=== PATIENT | male | born 1995 | race African-American/Black ===

== ENCOUNTER 2017-01-05 19:16 | Emergency (ER) | payer OTHER ==
[2017-01-05] MEDS ORDERED: Ibuprofen TAB* 400 MG PO ONE (19:41)
[2017-01-05 19:42] VITALS: BP 116/71
--- NOTE | 2017-01-05 19:45 | UC ---
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 Chest Pain Location: Left Lateral Character: Heaviness, Sharp/Stabbing Aggravating: Deep Breaths - coughing Alleviating: Rest Associated Signs & Symptoms: Positive: SOB, Fever, Cough - Allergy/Home Medications Allergies/Adverse Reactions: Allergies Allergy/AdvReac Type Severity Reaction Status Date / Time Seasonal Allegies Allergy Congestion Uncoded 01/05/17 19:35 Home Medications: Home Medications NK [No Home Medications Reported] 01/05/17 [History Confirmed 01/05/17] PMH/Surg Hx/FS Hx/Imm Hx Previously Healthy: Yes Endocrine History Of: Denies: Diabetes, Thyroid Disease Cardiovascular History Of: Denies: Cardiac Disorders, Hypertension Respiratory History Of: Reports: Bronchitis Denies: COPD, Asthma GI/ History Of: Denies: Ulcer Other History Of: Negative For: Anticoagulant Therapy - Surgical History Surgical History: None - Family History Known Family History: Positive: Cardiac Disease - mother- [place], Hypertension - mother, Diabetes - mother, Other - mother CVA - Social History Occupation: Employed Full-time Lives: With Family Alcohol Use: Weekly Substance Use Type: Marijuana Substance Use Comment - Amount & Last Used: benzodiazepines Smoking Status (MU): Light Every Day Tobacco Smoker Type: Cigarettes Amount Used/How Often: 1-2 cigs per day Cessation Counseling: Patient Advised to Stop - Immunization History Most Recent Influenza Vaccination: none Most Recent Tetanus Shot: up to date Review of Systems Constitutional: Fever, Chills, Fatigue Skin: Negative Eyes: Negative ENT: Sore Throat, Ear Ache, Nasal Discharge Respiratory: Cough Cardiovascular: Chest Pain Gastrointestinal: Negative Genitourinary: Negative Motor: Negative Neurovascular: Negative Musculoskeletal: Negative Neurological: Negative Psychological: Negative All Other Systems Reviewed And Are Negative: Yes Physical Exam Triage Information Reviewed: Yes Appearance: No Pain Distress, Well-Nourished, Ill-Appearing Vital Signs: Initial Vital Signs Temp 101.7 F 01/05/17 19:20 Vital Signs Reviewed: Yes Eyes: Positive: Conjunctiva Clear ENT: Positive: Pharyngeal erythema, Nasal congestion, Nasal drainage, TMs normal Neck: Positive: No Lymphadenopathy Respiratory: Positive: Lungs clear, Decreased breath sounds - LLL. Negative: Rhonchi, Wheezing Cardiovascular: Positive: RRR, No Murmur, Pulses Normal Abdomen Description: Positive: Nontender, Soft Bowel Sounds: Positive: Present Musculoskeletal Exam: Normal Neurological: Positive: Alert Psychological: Positive: Normal Response To Family, Age Appropriate Behavior Skin Exam: Normal Diagnostics - EKG Cardiac Rate: NL Cardiac Rhythm: Sinus: Normal Ectopy: None ST Segment: Normal Re-Evaluation - Re-Evaluation First Eval Change: Unchanged - Assessment/Plan Course Of Treatment: discussed negative results of EKg, chest x-ray strep and influenza. recommneded further evaluation in ED-pt refused signed AMA. will try treatment for costochondritis and go to ED of chest pain worsens - Differential Diagnoses - Chest Pain Differential Diagnosis/HQI/PQRI: Lower Respiratory Infection, Other: - influenza , pericarditis - Differential Diagnoses - Hypertension Differential Diagnosis/HQI PQRI: Myocardial Infarction - Differential Diagnoses - Palpitations Differential Diagnosis/HQI/PQRI: Pericarditis - Clinical Impression Provider Diagnoses: viral illness, costochondritis Discharge - Discharge Plan Condition: Stable Disposition: AGAINST MEDICAL ADVICE Patient Education Materials: Costochondritis (ED) Referrals: Kevin Zepeda MD [Medical Doctor] - Additional Instructions: Increase fluids and rest Take acetaminophen or ibuprofen for fever or pain Please review your discharge instructions. If your symptoms do not improve please call your primary care provider or return to urgent care.
--- NOTE | 2017-01-05 20:22 | RAD ---
INDICATION: 1 week shortness of breath. LEFT anterior lower chest pain for 5 days. 1 week cough. Fever. Bronchitis. History of tobacco use. COMPARISON: January 23, 2013 TECHNIQUE: Dual energy PA and routine lateral views of the chest were obtained. REPORT: Clear lungs and pleural spaces. Negative for pneumothorax. The heart, pulmonary vasculature, and mediastinal contours are unremarkable. Unremarkable osseous structures and soft tissue contours. IMPRESSION: No evidence for acute intrathoracic disease.
== END 2017-01-05 21:00 | disposition left against medical advice (07) ==
LOC: UCEAST 19:16
DX: B34.9 Viral infection, unspecified (principal); M94.0 Chondrocostal junction syndrome [Tietze]; F17.210 Nicotine dependence, cigarettes, uncomplicated
CPT/HCPCS: 71020; 87502; 87651; 93005; 99212; A9270-GY; G0463

== ENCOUNTER 2017-03-19 12:45 | Emergency (ER) | payer SELFPAY ==
[2017-03-19 12:55] VITALS: BP 114/62
== END 2017-03-19 15:15 | disposition left against medical advice (07) ==
LOC: ED 12:45
DX: S01.81XA Laceration without foreign body of other part of head, initial encounter (principal); X58.XXXA Exposure to other specified factors, initial encounter; Y93.9 Activity, unspecified; Y92.9 Unspecified place or not applicable; Z53.21 Procedure and treatment not carried out due to patient leaving prior to being seen by health care provider

== ENCOUNTER 2017-03-23 16:26 | Emergency (ER) | payer OTHER ==
[2017-03-23 17:02] VITALS: BP 136/80
[2017-03-23 18:13] LABS: Hematocrit 47 % (42-52); Hemoglobin 15.1 g/dl (14.0-18.0); Mean Corpuscular HGB Conc 32 g/dl (31-36); Mean Corpuscular Hemoglobin 30 pg (27-31); Mean Corpuscular Volume 92 fL (80-94); Mean Platelet Volume 10 um3 (7.4-10.4); Red Blood Count 5.12 10^6/ul (4.0-5.4); Red Cell Distribution Width 13 % (10.5-15); White Blood Count 4.6 10^3/ul (3.5-10.8)
[2017-03-23 18:15] LABS: Add Diff/Slide Review? Slide Review Added; Comments Flag Yes
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
[2017-03-23 18:27] LABS: Albumin 4.8 g/dL (3.2-5.2); BUN/Creatinine Ratio 9.9 (8-20); Calcium 9.5 mg/dL (8.6-10.3); EGFR African American 98.3 (>60); EGFR Non-African American 76.5 (>60); Potassium 3.2 mmol/L (3.5-5.0); Total Bilirubin 1.3 mg/dL (0.2-1.0); Total Protein 7.8 g/dL (6.4-8.9)
--- NOTE | 2017-03-23 19:08 | RAD ---
INDICATION: Intracranial injury COMPARISON: CT brain January 23, 2013 TECHNIQUE: Noncontrast axial source images were acquired from the skull base to the vertex. FINDINGS: Ventricles/sulci: The ventricles and cisterns are normal in size and configuration for age. Brain parenchyma: There is no focal parenchymal finding, evidence of intracranial mass, or intracranial mass effect. Intracranial hemorrhage:None. Extra-axial spaces: There are no abnormal extra axial fluid collections or evidence of extra-axial mass. Calvarium: There is no calvarial fracture or other calvarial abnormality. Scalp: There is no evidence of scalp or extracalvarial soft tissue abnormality. Paranasal sinuses/mastoid: The paranasal sinuses and mastoid air cells are clear. Other: None. IMPRESSION: NO ACUTE INTRACRANIAL FINDINGS.
--- NOTE | 2017-03-23 19:11 | RAD ---
INDICATION: Facial bone injury COMPARISON: None TECHNIQUE: Axial source images were acquired from the vertex of the mandible through the orbits. Coronal and sagittal reconstructed images were acquired. FINDINGS: Bones: There is no acute facial bone fracture. Orbits: The globes and intraconal structures appear intact. The optic nerves are symmetric. Extraocular muscles appear normal. There is no intraconal inflammatory change or retrobulbar mass.. Paranasal sinuses: The paranasal sinuses are clear. Brain: There are no acute abnormalities of the visualized brain parenchyma. Soft tissues: There is mild left supraorbital soft tissue swelling. Other: None The visualized soft tissue elements about the neck appear normal. IMPRESSION: NO ACUTE FACIAL BONE FRACTURE
== END 2017-03-23 19:35 | disposition home or self-care (01) ==
LOC: ED 16:26
DX: F14.90 Cocaine use, unspecified, uncomplicated (principal); F12.90 Cannabis use, unspecified, uncomplicated; S09.90XA Unspecified injury of head, initial encounter; S00.212A Abrasion of left eyelid and periocular area, initial encounter; W22.8XXA Striking against or struck by other objects, initial encounter; Y93.55 Activity, bike riding; Y92.9 Unspecified place or not applicable; R00.1 Bradycardia, unspecified; F17.210 Nicotine dependence, cigarettes, uncomplicated
CPT/HCPCS: 36415; 70450; 70486; 80053; 85025; 93005; 99282

== ENCOUNTER 2017-12-22 18:04 | Emergency (ER) | payer OTHER ==
[2017-12-22 18:09] VITALS: BP 109/65
--- NOTE | 2017-12-22 20:43 | UC ---
Jessee Keith Nilda, scribed for Jair Nixon MD on 12/22/17 at 1822 . Abdominal Pain Male HPI - HPI Summary HPI Summary: This patient is a 22 year old M presenting [place] [facility] [place] a chief complaint of constant N/V/D (watery diarrhea). Patient states he and his friends ate cooked chicken from [employer] last night and they all began to experience similar symptoms of N/V/D. The patient rates the pain 3/10 in severity. Symptoms aggravated by nothing and alleviated by BM. Patient reports diffuse abd cramping before diarrhea, but denies blood and mucous in stool. He denies recent traveling or abx usage. - History of Current Complaint Chief Complaint: UCGI Stated Complaint: VOMITING, DIARRHEA Time Seen by Provider: 12/22/17 18:11 Hx Obtained From: Patient Onset/Duration: Sudden Onset, Lasting Days, Still Present Timing: Constant Severity Currently: Mild Pain Intensity: 3 Pain Scale Used: 0-10 Numeric Location: Diffuse Radiates: No Aggravating Factor(s): Nothing Alleviating Factor(s): Other - BM Associated Signs And Symptoms: Positive: Other - diffuse abd cramping before diarrhea, N/V/D, but denies blood and mucous in stool. - Allergies/Home Medications Allergies/Adverse Reactions: Allergies Allergy/AdvReac Type Severity Reaction Status Date / Time Seasonal Allegies Allergy Congestion Uncoded 12/22/17 18:09 Home Medications: Home Medications Vitamins* 12/22/17 [History] PMH/Surg Hx/FS Hx/Imm Hx Previously Healthy: Yes Other History Of: Negative For: Anticoagulant Therapy - Surgical History Surgical History: None - Family History Known Family History: Positive: Cardiac Disease - mother- [place], Hypertension - mother, Diabetes - mother, Other - mother CVA - Social History Alcohol Use: Occasionally Substance Use Type: Marijuana Substance Use Comment - Amount & Last Used: benzodiazepines Smoking Status (MU): Current Every Day Smoker Type: Cigarettes Amount Used/How Often: 3-4 cigs per day - Immunization History Most Recent Influenza Vaccination: none Most Recent Tetanus Shot: up to date Review of Systems Respiratory: Other - negative SOB Gastrointestinal: Abdominal Pain, Vomiting, Diarrhea, Nausea, Other - negative blood or mucous in stool All Other Systems Reviewed And Are Negative: Yes Physical Exam - Summary Physical Exam Summary: VITAL SIGNS: Reviewed. GENERAL: Patient is a well developed and nourished M who is lying comfortable in the stretcher. Patient is not in any acute respiratory distress. HEAD AND FACE: Normocephalic EYES: PERRLA, EOMI x 2. EARS: Hearing grossly intact. MOUTH: Oropharynx within normal limits. NECK: Supple, trachea is midline, no adenopathy, no JVD, no carotid bruit. CHEST: Symmetric, no tenderness at palpation LUNGS: Clear to auscultation bilaterally. No wheezing or crackles. CVS: Regular rate and rhythm, S1 and S2 present, no murmurs or gallops appreciated. ABDOMEN: Soft, non-tender. Bowel sounds are normal. No abdominal abnormal pulsations. EXTREMITIES: Full ROM in all major joints, no edema, no cyanosis or clubbing. NEURO: Alert and oriented x 3. No acute neurological deficits. Speech is normal and follows commands. SKIN: Dry and warm Triage Information Reviewed: Yes Vital Signs: Initial Vital Signs Temp 97.9 F 12/22/17 18:05 Pulse 56 12/22/17 18:05 Resp 16 12/22/17 18:05 BP 109/65 12/22/17 18:05 Pulse Ox 100 12/22/17 18:05 Vital Signs Reviewed: Yes Abd Pain Male Course/Dx - Course Course Of Treatment: This patient is a 22 year old M presenting [place] [facility] [place] a chief complaint of constant N/V/D (watery diarrhea). Patient states he and his friends ate cooked chicken from [employer] last night and they all began to experience similar symptoms of N/V/D. The patient rates the pain 3/10 in severity. Symptoms aggravated by nothing and alleviated by BM. Patient reports diffuse abd cramping before diarrhea, but denies blood and mucous in stool. He denies recent traveling or abx usage. Medications reviewed. Allergies reviewed. He declines IV fluids. Patient states he only wants antinausea medications. I discussed all the findings and test results with the patient. Patient was instructed to return to the urgent care or go to ER immediately if any of the symptoms return or worsens. Plan of care was discussed with the patient, and patient understands and agrees. All questions were answered to patient satisfaction. There were no further complaints or concerns. The patient is hemodynamically stable, alert and oriented x3. - Differential Dx/Clinical Impression Provider Diagnoses: nausea, vomiting, and diarrhea Discharge - Sign-Out/Discharge Documenting (check all that apply): Discharge - Discharge Plan Condition: Stable Disposition: HOME Prescriptions: Famotidine TAB* [Pepcid 20 MG TAB*] 20 mg PO BID #10 tab Ondansetron TAB* [Zofran 4 MG Tab*] 4 mg PO Q6H PRN #10 tab PRN Reason: Vomiting Patient Education Materials: Dehydration (ED), Acute Nausea and Vomiting (ED), Acute Diarrhea (ED) Forms: *Work Release Referrals: Marichuy Bhakta MD [Primary Care Provider] - Additional Instructions: Take medications as instructed Increase your fluid intake Return to the UC if symptoms worsen - Billing Disposition and Condition Condition: STABLE Disposition: HOME The documentation as recorded by the Jessee rincon Nilda accurately reflects the service I personally performed and the decisions made by Hussain duarte Walter, MD.
== END 2017-12-22 18:26 | disposition home or self-care (01) ==
LOC: UCEAST 18:04
DX: R11.2 Nausea with vomiting, unspecified (principal); R19.7 Diarrhea, unspecified; F17.210 Nicotine dependence, cigarettes, uncomplicated
CPT/HCPCS: 99212; G0463

== ENCOUNTER 2018-01-01 12:21 | Emergency (ER) | payer OTHER ==
[2018-01-01 12:34] VITALS: BP 110/61
--- NOTE | 2018-01-01 14:08 | UC ---
Abdominal Pain Male HPI - HPI Summary HPI Summary: Sudden onset of right upper quadrant pain today at 11:30 AM while at work. Lasted for about 5 minutes then subsided. Patient also has some mild nausea but no vomiting. Has felt constipated for about 2 days and has overall malaise. Denies fever. No urinary symptoms. 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 Negative: Fever, Back Pain, Blood in Stool, Urinary Symptoms, Vomiting , Diarrhea - Allergies/Home Medications Allergies/Adverse Reactions: Allergies Allergy/AdvReac Type Severity Reaction Status Date / Time Seasonal Allegies Allergy Congestion Uncoded 01/01/18 12:26 PMH/Surg Hx/FS Hx/Imm Hx Previously Healthy: Yes Other History Of: Negative For: Anticoagulant Therapy - Surgical History Surgical History: None - Family History Known Family History: Positive: Cardiac Disease - mother- [place], Hypertension - mother, Diabetes - mother, Other - mother CVA - Social History Alcohol Use: Occasionally Alcohol Amount: 1 bottle of liquour (750mL) yesterday Substance Use Type: Marijuana Substance Use Comment - Amount & Last Used: 0.2g smoked this AM Smoking Status (MU): Current Every Day Smoker Type: Cigarettes Amount Used/How Often: 3-4 cigs per day - Immunization History Most Recent Influenza Vaccination: none Most Recent Tetanus Shot: up to date Review of Systems Constitutional: Fatigue Respiratory: Negative Cardiovascular: Negative Gastrointestinal: Abdominal Pain, Nausea Neurological: Headache All Other Systems Reviewed And Are Negative: Yes Physical Exam Triage Information Reviewed: Yes Appearance: Well-Appearing, No Pain Distress, Well-Nourished Vital Signs: Initial Vital Signs Temp 99.2 F 01/01/18 12:26 Pulse 82 01/01/18 12:26 Resp 16 01/01/18 12:26 BP 110/61 01/01/18 12:26 Pulse Ox 99 01/01/18 12:26 Vital Signs Reviewed: Yes Eyes: Positive: Conjunctiva Clear ENT: Positive: Hearing grossly normal Neck: Positive: Supple Respiratory Exam: Normal Cardiovascular Exam: Normal Abdomen Description: Positive: Soft, Other: - TTP RLQ. NO REBOUND OR RIGIDITY. NEG PSOAS, NEG OBTURATOR. NOT TENDER TO PERCUSSION. NO EPIGASTRIC OR RUQ TENDERNESS.. Negative: CVA Tenderness (R), CVA Tenderness (L), Distended, Guarding Bowel Sounds: Positive: Present Musculoskeletal: Positive: No Edema Neurological: Positive: Alert Psychological: Positive: Age Appropriate Behavior Skin: Negative: rashes Diagnostics - Laboratory Diagnostic Studies Completed/Ordered: URINE DIP SP. GR. 1.015, 1+ PROTEIN Abd Pain Male Course/Dx - Differential Dx/Clinical Impression Provider Diagnoses: RLQ PAIN Discharge - Sign-Out/Discharge Documenting (check all that apply): Discharge - Discharge Plan Condition: Stable Disposition: HOME Prescriptions: Ondansetron ODT TAB* [Zofran Odt TAB*] 4 mg PO Q6H PRN #20 tab.odt PRN Reason: Nausea/Vomiting Patient Education Materials: Abdominal Pain (ED) Forms: *Work Release Referrals: Jolie Escobar MD [Medical Doctor] - If Needed Additional Instructions: URINE TEST TODAY WITH SMALL AMOUNT OF PROTEIN BUT NO INDICATION OF INFECTION. FOLLOW-UP PCP. ABDOMINAL PAIN: There are many causes of abdominal pain. Pain can mean a serious problem requiring surgery (such as appendicitis), or an innocent problem which goes away on its own (such as a viral infection). Often, time must pass to determine the cause of pain. The physician does not feel that hospitalization is necessary, at present. Conditions may change, however, within the next 24 hours. GO TO THE ER WITHOUT FAIL IF ANY OF THE FOLLOWING OCCUR: 1) Pain which becomes more severe, steady, or becomes concentrated in one specific area. Also, pain which is more severe with movement or coughing. 2) Vomiting which persists or becomes more frequent. 3) Blood in the vomitus, urine, or bowel movements. Blood in the stool may have a tarry or black appearance. 4) Shaking chills or fever greater than 100 degrees F. 5) The abdomen becomes more distended or swollen. 6) Bowel movements cease. 7) Failure to improve as expected. OBSERVATION FOR APPENDICITIS: At this time, the abdominal pain does not seem to be appendicitis. Our next "test" will be passage of time. If you have early appendicitis, signs will appear to help us make the diagnosis. Most of the time, the pain goes away. In these cases, the pain is usually due to a virus in the lymph glands near the appendix, or due to an ovarian cyst or ovulation. Unless the pain is gone, you should come back for a recheck. This is usually done in 8 to 12 hours. Be sure you understand your follow-up instructions. GO TO THE ER IMMEDIATELY IF: (1) the pain becomes much more severe and sharply increases with movement or coughing, (2) vomiting becomes frequent, (3) there is blood in the vomit, urine, or bowel movements, (4) there are shaking chills or fever, or (5) the abdomen becomes more distended or swollen. - Billing Disposition and Condition Condition: STABLE Disposition: HOME
== END 2018-01-01 14:28 | disposition home or self-care (01) ==
LOC: UCEAST 12:21
DX: R10.31 Right lower quadrant pain (principal); R11.0 Nausea; R53.83 Other fatigue; R51 Headache; K59.00 Constipation, unspecified; F17.210 Nicotine dependence, cigarettes, uncomplicated
CPT/HCPCS: 81003; 99212; G0463

== ENCOUNTER 2018-05-12 08:04 | Emergency (ER) | payer SELFPAY ==
--- NOTE | 2018-05-12 08:22 | UC ---
HPI Febrile Illness - HPI Summary HPI Summary: This is sergey Goldberg documenting for attending Conrad Arce . This patient is a 22 year old M presenting to [facility] [place] with a chief complaint of a febrile illness that began suddenly yesterday. The patient rates the pain 0/10 in severity. Patient reports cough, congestion, chest pressure, sore throat, fever of 100, headache, nausea, and fatigue. Patient denies ear pain, ABD pain, edema, and vomiting. - History of Current Complaint Chief Complaint: UCRespiratory Hx Obtained From: Patient Onset/Duration: Started Days Ago - 1, Still Present Timing: Constant Temperature: 100.0 F Initial Severity: Mild Current Severity: Mild Pain Intensity: 0 Pain Scale Used: 0-10 Numeric Associated Signs and Symptoms: Other: - cough, congestion, chest pressure, sore throat, fever of 100, headache, nausea, and fatigue. - Allergy/Home Medications Allergies/Adverse Reactions: Allergies Allergy/AdvReac Type Severity Reaction Status Date / Time Seasonal Allegies Allergy Congestion Uncoded 01/01/18 12:26 PMH/Surg Hx/FS Hx/Imm Hx Previously Healthy: Yes Other History Of: Negative For: Hepatitis B, Hepatitis C, Anticoagulant Therapy - Surgical History Surgical History: None - Family History Known Family History: Positive: Cardiac Disease - mother- [place], Hypertension - mother, Diabetes - mother, Other - mother CVA - Social History Alcohol Use: None Alcohol Amount: 1 bottle of liquour (750mL) yesterday Substance Use Type: Marijuana Substance Use Comment - Amount & Last Used: 2 x daily Smoking Status (MU): Current Every Day Smoker Type: Cigarettes Amount Used/How Often: 2 per day - Immunization History Most Recent Influenza Vaccination: none Most Recent Tetanus Shot: up to date Review of Systems Constitutional: Fever, Fatigue ENT: Sore Throat, Sinus Congestion Respiratory: Cough Cardiovascular: Chest Pain - pressure Gastrointestinal: Nausea Neurological: Headache All Other Systems Reviewed And Are Negative: Yes Physical Exam - Summary Physical Exam Summary: General: moderately ill appearing, no pain distress Skin: warm, color reflects adequate perfusion, dry Head: normal Eyes: EOMI, BARB ENT: positive rhinorrhea, posterior pharynx erythema Neck: supple, nontender Respiratory: CTA, breath sounds present Cardiovascular: RRR Abdomen: soft, nontender Bowel: present Musculoskeletal: normal, strength/ROM intact Neurological: sensory/motor intact, A&O x3 Psychological: affect/mood appropriate Triage Information Reviewed: Yes Vital Signs: Initial Vital Signs Temp 99.3 F 05/12/18 08:13 Pulse 76 05/12/18 08:13 Resp 24 05/12/18 08:13 BP 122/76 05/12/18 08:13 Pulse Ox 99 05/12/18 08:13 Vital Signs Reviewed: Yes Diagnostics - Radiology CXR Radiology Interpretation Completed By: Radiologist - No radiographic evidence of acute cardiopulmonary disease. Dr. Arce has reviewed this report. Course/Dx - Course Course Of Treatment: IMPROVED IN CLINIC. DISCUSSED VIRAL VERSES BACTERIAL INFECTION AND THE ROLE OF ANTIBIOTICS. THE PATIENT WISHES TO BE ON ANTIBIOTICS AT THIS TIME. F/U PMD; RECHECK SOONER IF WORSE. - Diagnoses Clinic Provider Diagnoses: BRONCHITIS WITH BRONCHOSPASM. FEVER Discharge - Sign-Out/Discharge Documenting (check all that apply): Patient Departure - Discharge Plan Condition: Stable Disposition: HOME Prescriptions: Albuterol HFA INHALER* [Ventolin HFA Inhaler*] 2 puff INH Q4H PRN #1 mdi PRN Reason: Wheezing Azithromyxin PEDRITO (NF) [Z-Pedrito (Zithromax) 250 mg tabs #6] 2 tab PO .TODAY, THEN 1 DAILY #6 tab Ibuprofen TAB* [Motrin TAB* 600 MG] 600 mg PO Q6H PRN #20 tab PRN Reason: Fever Ondansetron ODT TAB* [Zofran 4 MG Odt TAB*] 4 mg PO Q6H PRN #10 tab.odt PRN Reason: Nausea Patient Education Materials: Fever in Adults (ED), Acute Bronchitis (ED), Bronchospasm (ED) Referrals: Marichuy Bhakta MD [Primary Care Provider] - Additional Instructions: FOLLOW UP WITH YOUR DOCTOR IF NOT COMPLETELY IMPROVED. GET RECHECKED FOR ANY WORSENING OF YOUR CONDITION OR QUESTIONS OR CONCERNS. - Billing Disposition and Condition Condition: STABLE Disposition: Home Attestations Scribe Attestation: This is sergey Goldberg documenting for attending Conrad Arce . User Type: Provider with Scribe Provider Attestation: The documentation recorded by the scribe accurately reflects the service I personally performed and the decisions made by me.
[2018-05-12] MEDS ORDERED: Ondansetron ODT TAB* 4 MG PO ONE (08:38)
[2018-05-12] MEDS ORDERED: Ibuprofen TAB* 600 MG PO ONE (08:38)
[2018-05-12] MEDS ORDERED: GuaiFENesin DM* 5 ML UDC PO ONE (08:42)
--- NOTE | 2018-05-12 09:07 | RAD ---
INDICATION: Cough and congestion COMPARISON: Most recent comparison chest x-ray January 05, 2017 TECHNIQUE: PA and lateral views of the chest were obtained. FINDINGS: The heart and mediastinum are normal in size and contour. The lungs are grossly clear. There is no evidence of large pleural effusion. Visualized bones are normal for the patient's age. There is no radiographic evidence of free air beneath the diaphragm IMPRESSION: No radiographic evidence of acute cardiopulmonary disease.
[2018-05-12 09:26] VITALS: BP 110/67
[2018-05-12] MEDS ORDERED: Albuterol 2.5 MG/3 ML NEB.SOL* (0.083%) INH ONE (10:09)
== END 2018-05-12 10:45 | disposition home or self-care (01) ==
LOC: UCEAST 08:04
DX: J20.9 Acute bronchitis, unspecified (principal); R50.9 Fever, unspecified; Z82.49 Family history of ischemic heart disease and other diseases of the circulatory system; Z83.3 Family history of diabetes mellitus; Z82.3 Family history of stroke; F17.210 Nicotine dependence, cigarettes, uncomplicated
CPT/HCPCS: 71046; 99213; A9270-GY; G0463

== ENCOUNTER 2019-01-25 07:53 | Emergency (ER) | payer BC ==
[2019-01-25 11:08] VITALS: BP 112/69
--- NOTE | 2019-01-25 11:21 | UC ---
UC General HPI - HPI Summary HPI Summary: PATIENT HAS HAD ABOUT 1 MONTH OF TENDER LUMPS ON BOTH SIDES OF HIS NECK. ALSO HAS INTERMITTENT ABDOMINAL PAIN BUT DENIES ANY NAUSEA/VOMITING/DIARRHEA. NO FEVER. NO URINARY SYMPTOMS. NO PENILE DISCHARGE. FEELS MORE TIRED THAN NORMAL. TODAY NOTED SOME MIDSTERNAL CHEST PAIN. IS SEXUALLY ACTIVE WITH ONE FEMALE PARTNER FOR THE PAST FEW MONTHS. UNPROTECTED. IS NOT CONCERNED ABOUT STDS. STATES HE HAS BEEN PUTTING OFF EVALUATION 2 FAMILY MEMBERS WERE RECENTLY DIAGNOSED WITH CANCER AND HE WAS SCARED. NO PCP. - History of Current Complaint Chief Complaint: UCGeneralIllness Stated Complaint: SKIN COMPLAINT Time Seen by Provider: 01/25/19 08:12 Hx Obtained From: Patient Onset/Duration: Gradual Onset, Lasting Weeks, Still Present Timing: Constant Onset Severity: Moderate Current Severity: Moderate Pain Intensity: 4 Associated Signs & Symptoms: Positive: Abdominal Pain - Allergy/Home Medications Allergies/Adverse Reactions: Allergies Allergy/AdvReac Type Severity Reaction Status Date / Time Seasonal Allegies Allergy Congestion Uncoded 01/25/19 08:03 PMH/Surg Hx/FS Hx/Imm Hx Previously Healthy: Yes Other History Of: Negative For: Hepatitis B, Hepatitis C, Anticoagulant Therapy - Surgical History Surgical History: None - Family History Known Family History: Positive: Cardiac Disease - mother- [place], Hypertension - mother, Diabetes - mother, Other - mother CVA - Social History Alcohol Use: Weekly Alcohol Amount: 1 bottle of liquour (750mL) yesterday Substance Use Type: Marijuana Substance Use Comment - Amount & Last Used: 0.2g smoked this AM Smoking Status (MU): Light Every Day Tobacco Smoker Type: Cigarettes Amount Used/How Often: 3-4 cigs per day - Immunization History Most Recent Influenza Vaccination: none Most Recent Tetanus Shot: up to date Review of Systems All Other Systems Reviewed And Are Negative: Yes Constitutional: Positive: Fatigue Respiratory: Positive: Negative Cardiovascular: Positive: Negative Gastrointestinal: Positive: Abdominal Pain. Negative: Vomiting, Diarrhea, Nausea Genitourinary: Positive: Negative Physical Exam Triage Information Reviewed: Yes Appearance: No Pain Distress, Well-Nourished, Thin, Other: - SEEMS TIRED Vital Signs: Initial Vital Signs Temp 97.9 F 01/25/19 07:57 Pulse 70 01/25/19 07:57 Resp 18 01/25/19 07:57 BP 115/62 01/25/19 07:57 Pulse Ox 100 01/25/19 07:57 Laboratory Tests 01/25/19 09:31 POC Urine Color Yellow POC Urine Clarity Slightly cloudy POC Urine pH 6.5 POC Ur Specif [place] >= 1.030 POC Urine Protein Negative POC Ur Glucose (UA) Negative POC Urine Ketones Negative POC Urine Blood Negative POC Urine Nitrite Negative POC Urine Bilirubin Negative POC Urine Urobilinogen 1.0 POC U Leukocyte Esteras Negative Vital Signs Reviewed: Yes Eyes: Positive: Conjunctiva Clear ENT: Positive: Hearing grossly normal, Pharynx normal, TMs normal Neck: Positive: Supple, Tenderness @ - TENDER SPFL CERVICAL LAD, Enlarged Nodes @ - TENDER SPFL CERVICAL LAD Respiratory Exam: Normal Cardiovascular Exam: Normal Abdomen Description: Positive: Soft, Other: - DIFFUSELY TENDER BUT WORSE IN EPIGASTRIC AND LOWER ABDOMINAL REGIONS. Negative: CVA Tenderness (R), CVA Tenderness (L), Distended, Guarding Bowel Sounds: Positive: Present Musculoskeletal: Positive: No Edema Neurological: Positive: Alert Psychological: Positive: Age Appropriate Behavior Skin: Negative: Rashes Diagnostics - Radiology CT ABD/PELVIS W/O CONTRAST Radiology Interpretation Completed By: Radiologist Summary of Radiographic Findings: UNREMARKABLE - LIMITED DUE TO LACK OF CONTRAST CXR Radiology Interpretation Completed By: Radiologist Summary of Radiographic Findings: No active cardiopulmonary disease is noted. - EKG Cardiac Rate: Bradycardia - 49BPM Cardiac Rhythm: Sinus: Normal Ectopy: None ST Segment: Normal Course/Dx - Course Course Of Treatment: PT HAS HAD ABOUT 1 MONTH OF TENDER CERVICAL LAD WELL AND INBTERMITTENT ABDOMINAL PAIN AND OVERALL MALAISE/FATIGUE. CXR UNREMARKABLE. CT ABD/PELVIS LIMITED DUE TO LACK OF CONTRAST BUT NOTHING ACUTE. LABS INCLUDE CBC, CMP, MONOSPOT AND STD TESTING. URINE FOR GONORRHEA/CHLAMYDIA. EMPIRIC DOXYCYCLINE. FOLLOW-UP WITH PCP OR [facility]. - Diagnoses Provider Diagnosis: Lymphadenopathy, generalized, Abdominal pain Discharge - Sign-Out/Discharge Documenting (check all that apply): Patient Departure All imaging exams completed and their final reports reviewed: Yes - Discharge Plan Condition: Stable Disposition: HOME Prescriptions: Doxycycline Monohydrate 1 cap PO BID #20 cap Patient Education Materials: Lymphadenopathy (ED), Abdominal Pain (ED) Referrals: [facility] [Outside] - 1 Week Additional Instructions: UNCLEAR CAUSE OF YOUR ENLARGED LYMPH NODES AND ABDOMINAL PAIN TODAY. LABS DRAWN TO EVALUATE BLOOD COUNT, METABOLIC PANEL, MONO, SYPHILIS AND HIV STATUS. YOUR URINE DIP WAS UNREMARKABLE. SPECIMEN SENT FOR GONORRHEA/CHLAMYDIA. CT ABDOMEN/PELVIS WAS LIMITED DUE TO LACK OF CONTRAST BUT UNREMARKABLE. CHEST X- RAY TODAY UNREMARKABLE. GIVEN THE PROTRACTED NATURE OF YOUR ENLARGED LYMPH NODES WILL COVER FOR INFECTIOUS PROCESS WITH DOXYCYCLINE TWICE DAILY FOR 10 DAYS. FOLLOW-UP WITH A PCP FOR FURTHER EVALUATION. ABDOMINAL PAIN: There are many causes of abdominal pain. Pain can mean a serious problem requiring surgery (such as appendicitis), or an innocent problem which goes away on its own (such as a viral infection). Often, time must pass to determine the cause of pain. The physician does not feel that hospitalization is necessary, at present. Conditions may change, however, within the next 24 hours. GO TO THE ER WITHOUT FAIL IF ANY OF THE FOLLOWING OCCUR: 1) Pain which becomes more severe, steady, or becomes concentrated in one specific area. Also, pain which is more severe with movement or coughing. 2) Vomiting which persists or becomes more frequent. 3) Blood in the vomitus, urine, or bowel movements. Blood in the stool may have a tarry or black appearance. 4) Shaking chills or fever greater than 100 degrees F. 5) The abdomen becomes more distended or swollen. 6) Bowel movements cease. 7) Failure to improve as expected. OBSERVATION FOR APPENDICITIS: At this time, the abdominal pain does not seem to be appendicitis. Our next "test" will be passage of time. If you have early appendicitis, signs will appear to help us make the diagnosis. Most of the time, the pain goes away. In these cases, the pain is usually due to a virus in the lymph glands near the appendix, or due to an ovarian cyst or ovulation. Unless the pain is gone, you should come back for a recheck. This is usually done in 8 to 12 hours. Be sure you understand your follow-up instructions. GO TO THE ER IMMEDIATELY IF: (1) the pain becomes much more severe and sharply increases with movement or coughing, (2) vomiting becomes frequent, (3) there is blood in the vomit, urine, or bowel movements, (4) there are shaking chills or fever, or (5) the abdomen becomes more distended or swollen. CALL THE NUMBER BELOW FOR ASSISTANCE IN ESTABLISHING WITH A PCP An additional resource available to assist in finding the appropriate physician for your health care needs is the [facility] ([facility]). You may contact them by calling [phone]. - Billing Disposition and Condition Condition: STABLE Disposition: Home
[2019-01-25 16:44] LABS: ABS Basophils 0 10^3/ul (0-0.2); ABS Eosinophils 0.1 10^3/ul (0-0.6); ABS Lymphocytes 1.6 10^3/ul (1.0-4.8); ABS Monocytes 0.3 10^3/ul (0-0.8); ABS Neutrophils 2.2 10^3/ul (1.5-7.7); ABS Nucleated RBC 0 10^3/ul; Eosinophil % 1.3 %; Hematocrit 48 % (36-46); Hemoglobin 15.5 g/dL (14.0-18.0); Lymphocyte % 38.2 %; Mean Corpuscular HGB Conc 33 g/dL (31-36); Mean Corpuscular Hemoglobin 30 pg (27-31); Mean Corpuscular Volume 93 fL (80-94); Mean Platelet Volume 10.7 fL (7.4-10.4); Nucleated Red Blood Cells % 0.1; Platelet Count 179 10^3/uL (150-450); Red Blood Count 5.14 10^6 /uL (4.18-5.48); Red Cell Distribution Width 13 % (10.5-15); White Blood Count 4.2 10^3/uL (3.5-10.8)
[2019-01-25 17:09] LABS: Calcium 9.8 mg/dL (8.6-10.3); Potassium 4.2 mmol/L (3.5-5.0); Total Bilirubin 0.9 mg/dL (0.2-1.0)
[2019-01-25 17:15] LABS: Albumin/Globulin Ratio 1.9 (1-3); BUN/Creatinine Ratio 14.5 (8-20); EGFR African American 140.2 (>60); EGFR Non-African American 115.9 (>60); Globulin 2.7 g/dL (2-4); Total Protein 7.7 g/dL (6.4-8.9)
[2019-01-26 12:43] LABS: Neisseria gonorrhoeae (GC) RNA Negative (Negative)
--- NOTE | 2019-01-26 15:51 | UC ---
- Progress Note Progress Note: NOTIFY PT OR RESULT NEEDS TO CONTINUE DOXY Course/Dx - Diagnoses Provider Diagnoses: Lymphadenopathy, generalized, Abdominal pain Discharge - Sign-Out/Discharge Documenting (check all that apply): Post-Discharge Follow Up All imaging exams completed and their final reports reviewed: Yes - Discharge Plan Condition: Stable Disposition: HOME Prescriptions: Doxycycline Monohydrate 1 cap PO BID #20 cap Patient Education Materials: Lymphadenopathy (ED), Abdominal Pain (ED) Referrals: [facility] [Outside] - 1 Week Additional Instructions: UNCLEAR CAUSE OF YOUR ENLARGED LYMPH NODES AND ABDOMINAL PAIN TODAY. LABS DRAWN TO EVALUATE BLOOD COUNT, METABOLIC PANEL, MONO, SYPHILIS AND HIV STATUS. YOUR URINE DIP WAS UNREMARKABLE. SPECIMEN SENT FOR GONORRHEA/CHLAMYDIA. CT ABDOMEN/PELVIS WAS LIMITED DUE TO LACK OF CONTRAST BUT UNREMARKABLE. CHEST X- RAY TODAY UNREMARKABLE. GIVEN THE PROTRACTED NATURE OF YOUR ENLARGED LYMPH NODES WILL COVER FOR INFECTIOUS PROCESS WITH DOXYCYCLINE TWICE DAILY FOR 10 DAYS. FOLLOW-UP WITH A PCP FOR FURTHER EVALUATION. ABDOMINAL PAIN: There are many causes of abdominal pain. Pain can mean a serious problem requiring surgery (such as appendicitis), or an innocent problem which goes away on its own (such as a viral infection). Often, time must pass to determine the cause of pain. The physician does not feel that hospitalization is necessary, at present. Conditions may change, however, within the next 24 hours. GO TO THE ER WITHOUT FAIL IF ANY OF THE FOLLOWING OCCUR: 1) Pain which becomes more severe, steady, or becomes concentrated in one specific area. Also, pain which is more severe with movement or coughing. 2) Vomiting which persists or becomes more frequent. 3) Blood in the vomitus, urine, or bowel movements. Blood in the stool may have a tarry or black appearance. 4) Shaking chills or fever greater than 100 degrees F. 5) The abdomen becomes more distended or swollen. 6) Bowel movements cease. 7) Failure to improve as expected. OBSERVATION FOR APPENDICITIS: At this time, the abdominal pain does not seem to be appendicitis. Our next "test" will be passage of time. If you have early appendicitis, signs will appear to help us make the diagnosis. Most of the time, the pain goes away. In these cases, the pain is usually due to a virus in the lymph glands near the appendix, or due to an ovarian cyst or ovulation. Unless the pain is gone, you should come back for a recheck. This is usually done in 8 to 12 hours. Be sure you understand your follow-up instructions. GO TO THE ER IMMEDIATELY IF: (1) the pain becomes much more severe and sharply increases with movement or coughing, (2) vomiting becomes frequent, (3) there is blood in the vomit, urine, or bowel movements, (4) there are shaking chills or fever, or (5) the abdomen becomes more distended or swollen. CALL THE NUMBER BELOW FOR ASSISTANCE IN ESTABLISHING WITH A PCP An additional resource available to assist in finding the appropriate physician for your health care needs is the [facility] ([facility]). You may contact them by calling [phone]. - Billing Disposition and Condition Condition: STABLE Disposition: Home
== END 2019-01-25 11:49 | disposition home or self-care (01) ==
LOC: UCEAST 07:53
DX: R59.0 Localized enlarged lymph nodes (principal); R10.84 Generalized abdominal pain; R07.89 Other chest pain; R53.83 Other fatigue; R00.1 Bradycardia, unspecified; R16.0 Hepatomegaly, not elsewhere classified; Z82.49 Family history of ischemic heart disease and other diseases of the circulatory system; Z83.3 Family history of diabetes mellitus; Z82.3 Family history of stroke; F17.210 Nicotine dependence, cigarettes, uncomplicated
CPT/HCPCS: 36415; 71046; 74176; 80053; 81003; 85025; 86308; 86664; 86665; 86703; 86780; 87491; 87591; 93005; 99212; G0463

== ENCOUNTER 2019-02-04 08:32 | Emergency (ER) | payer BC ==
[2019-02-04] MEDS ORDERED: Acetaminophen TAB* 325 MG PO ONE (08:59)
--- NOTE | 2019-02-04 09:24 | ED ---
Adult Trauma - HPI Summary HPI Summary: Patient is a 23-year-old otherwise healthy male presenting to the ED after a fall last night. He states he tripped and fell onto his left side injuring his left lower back/hip as well as left jaw. He has been unable to open widely, endorsing trismus. He denies any dysphagia or odynophagia. He denies any dental pain. Pain is located over the L TMJ without radiation. He endorses L lower back pain. Denies hematuria. - History of Current Complaint Chief Complaint: EDFall Stated Complaint: FELL DOWN STAIRS PER PT Time Seen by Provider: 02/04/19 08:38 Hx Obtained From: Patient Ambulatory at the Scene: No Loss of Consciousness: no loss of consciousness Force: Low Restraints: None Onset/Duration: Started Hours Ago Onset of Pain: Hours Onset Severity: Mild Current Severity: Mild Pain Intensity: 8 Pain Scale Used: 0-10 Numeric Aggravating Factor(s): Nothing Alleviating Factor(s): Nothing Associated Signs & Symptoms: Positive: Negative - Allergy/Home Medications Allergies/Adverse Reactions: Allergies Allergy/AdvReac Type Severity Reaction Status Date / Time Seasonal Allegies Allergy Congestion Uncoded 02/04/19 08:38 PMH/Surg Hx/FS Hx/Imm Hx Previously Healthy: Yes Endocrine/Hematology History: Denies: Hx Anticoagulant Therapy, Hx Diabetes, Hx Thyroid Disease Cardiovascular History: Denies: Hx Hypertension Respiratory History: Denies: Hx Asthma, Hx Chronic Obstructive Pulmonary Disease (COPD) GI History: Denies: Hx Ulcer - Immunization History Date of Tetanus Vaccine: 03/20 Hx Pertussis Vaccination: No Immunizations Up to Date: Yes Infectious Disease History: No Infectious Disease History: Denies: Hx Clostridium Difficile, Hx Hepatitis, Hx Human Immunodeficiency Virus (HIV), Hx of Known/Suspected MRSA, Hx Shingles, Hx Tuberculosis, Hx Known/ Suspected VRE, Hx Known/Suspected VRSA, History Other Infectious Disease, Traveled Outside the [place] in Last 30 Days - Family History Known Family History: Positive: Cardiac Disease - mother- [place], Hypertension - mother, Diabetes - mother, Other - mother CVA - Social History Occupation: Employed Full-time Lives: With Family Alcohol Use: Weekly Alcohol Amount: 1 bottle of liquour (750mL) yesterday Hx Substance Use: Yes Substance Use Type: Reports: Marijuana Substance Use Comment - Amount & Last Used: 0.2g smoked this AM Hx Tobacco Use: Yes Smoking Status (MU): Light Every Day Tobacco Smoker Type: Cigarettes Amount Used/How Often: 3-4 cigs per day Review of Systems Constitutional: Negative Negative: Fever, Chills, Fatigue, Skin Diaphoresis Negative: Palpitations, Chest Pain Negative: Shortness Of Breath, Cough Genitourinary: Negative Positive: no symptoms reported, see HPI Positive: Arthralgia, Myalgia Skin: Negative All Other Systems Reviewed And Are Negative: Yes Physical Exam Triage Information Reviewed: Yes Vital Signs On Initial Exam: Initial Vitals Temp Pulse Resp BP Pulse Ox 99.8 F 77 16 126/85 99 02/04/19 08:34 02/04/19 08:34 02/04/19 08:34 02/04/19 08:34 02/04/19 08:34 Vital Signs Reviewed: Yes Appearance: Positive: Well-Appearing, Well-Nourished Skin: Positive: Skin Color Reflects Adequate Perfusion Head/Face: Positive: Normal Head/Face Inspection Eyes: Positive: EOMI, Conjunctiva Clear Neck: Positive: Nontender, No Lymphadenopathy Respiratory/Lung Sounds: Positive: Breath Sounds Present Cardiovascular: Positive: RRR, Pulses are Symmetrical in both Upper and Lower Extremities Musculoskeletal: Positive: Pain @ - left hip and left TMJ Neurological: Positive: Sensory/Motor Intact, Alert, Oriented to Person Place, Time, Speech Normal Psychiatric: Positive: Affect/Mood Appropriate Diagnostics - Vital Signs Vital Signs Temp Pulse Resp BP Pulse Ox 02/04/19 08:34 99.8 F 77 16 126/85 99 - Laboratory Lab Statement: Any lab studies that have been ordered have been reviewed, and results considered in the medical decision making process. Adult Trauma Course/Dx - Course Course Of Treatment: During the course of treatment, the patient is evaluated for left-sided lower back and hip pain as well as left-sided jaw pain. There are no signs of trauma or erythema or ecchymosis to these areas. Patient endorses trismus due to pain at the left TMJ. He is ambulating well. Denies any weakness. Denies any numbness or tingling to the bilateral lower extremities. CT of the maxillofacial and left hip. Both negative. Patient is ambulating well and denies any concerns. He will be discharged with contusion. - Diagnoses Provider Diagnoses: Contusion of jaw, Contusion, hip Discharge - Sign-Out/Discharge Documenting (check all that apply): Patient Departure Patient Received Moderate/Deep Sedation with Procedure: No - Discharge Plan Condition: Stable Disposition: HOME Patient Education Materials: Hip Contusion (ED), Facial Contusion (ED) Referrals: Marichuy Bhakta MD [Primary Care Provider] - Additional Instructions: Take 1 tab three times daily as needed for pain Moist heat to the area - Billing Disposition and Condition Condition: STABLE Disposition: Home
[2019-02-04 10:22] VITALS: BP 131/76
== END 2019-02-04 10:22 | disposition home or self-care (01) ==
LOC: ED 08:32
DX: S70.02XA Contusion of left hip, initial encounter (principal); S00.83XA Contusion of other part of head, initial encounter; F17.210 Nicotine dependence, cigarettes, uncomplicated; W01.0XXA Fall on same level from slipping, tripping and stumbling without subsequent striking against object, initial encounter; W10.9XXA Fall (on) (from) unspecified stairs and steps, initial encounter; Y92.9 Unspecified place or not applicable
CPT/HCPCS: 70486; 72192; 99282; A9270-GY

== ENCOUNTER 2019-04-14 03:00 | Emergency (ER) | payer BC ==
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
[2019-04-14 03:28] LABS: ABS Lymphocytes 1.9 10^3/ul (1.0-4.8); ABS Monocytes 0.4 10^3/ul (0-0.8); Eosinophil % 0.3 %; Hematocrit 45 % (42-52); Hemoglobin 15.1 g/dL (14.0-18.0); Lymphocyte % 22.6 %; Mean Corpuscular HGB Conc 34 g/dL (31-36); Mean Corpuscular Hemoglobin 31 pg (27-31); Mean Corpuscular Volume 93 fL (80-94); Mean Platelet Volume 9.5 fL (7.4-10.4); Nucleated Red Blood Cells % 0.1; Platelet Count 165 10^3/uL (150-450); Red Cell Distribution Width 13 % (10-15); White Blood Count 8.4 10^3/uL (3.5-10.8)
[2019-04-14 03:43] LABS: Albumin 4.7 g/dL (3.2-5.2); Albumin/Globulin Ratio 1.6 (1-3); BUN/Creatinine Ratio 7.7 (8-20); Calcium 9.4 mg/dL (8.6-10.3); EGFR African American 108.1 (>60); EGFR Non-African American 89.3 (>60); Globulin 2.9 g/dL (2-4); Potassium 3.6 mmol/L (3.5-5.0); Total Bilirubin 0.8 mg/dL (0.2-1.0); Total Protein 7.6 g/dL (6.4-8.9)
[2019-04-14 03:49] LABS: Urine Appearance Clear; Urine Bilirubin Negative (Negative); Urine Blood Negative (Negative); Urine Color Yellow; Urine Glucose Negative (Negative); Urine Ketones Negative (Negative); Urine Nitrite Negative (Negative); Urine Protein Negative (Negative); Urine Specific Gravity 1.004 (1.010-1.030); Urine Urobilinogen Negative (Negative)
[2019-04-14] MEDS ORDERED: Nicotine* 4MG (FRUIT FLAVOR) GUM PO PRN (03:58)
[2019-04-14 04:04] LABS: TSH (Thyroid Stimulating Horm) 1.53 mcIU/mL (0.34-5.60)
[2019-04-14 04:10] LABS: Urine Benzodiazepine Screen None Detected (None Detect); Urine Opiates Screen None Detected (None Detect)
--- NOTE | 2019-04-14 07:05 | ED ---
Progress - Progress Note Progress Note: This patient was signed out from Dr. Askew to Dr. Nixon at shift change on 04/14 at 0700, pending disposition, awaiting sobriety and mental health evaluation. Mental health evaluation reveals the patients condition is stable and will be discharged to follow up with [facility] for substance abuse. Course/Dx - Course Course Of Treatment: This patient was signed out from Dr. Askew to Dr. Nixon at shift change on 04/14/19 at 0700, pending disposition, awaiting sobriety and mental health evaluation. Mental health evaluation reveals the patients condition is stable and will be discharged to follow up with [facility] for substance abuse. - Diagnoses Provider Diagnoses: Polysubstance abuse, Moderate conduct disorder - Provider Notifications Discussed Care Of Patient With: Mental [employer] Student Counselor Time Discussed With Above Provider: 08:26 Instructed by Provider To: Other - Recommends pt be discharged with a referral to the [facility] for substance abuse. Discharge - Sign-Out/Discharge Documenting (check all that apply): Patient Departure - Discharge Patient Received Moderate/Deep Sedation with Procedure: No - Discharge Plan Condition: Stable Disposition: HOME Patient Education Materials: Mood Disorders (ED), Polysubstance Abuse (ED) Referrals: [facility] [Outside] - 3 Days Marichuy Bhakta MD [Primary Care Provider] - 3 Days Additional Instructions: Follow up with [facility] within three days. Follow up with your primary care provider within three days. RETURN TO THE ED FOR ANY WORSENING OR NEW SYMPTOMS. - Billing Disposition and Condition Condition: STABLE Disposition: Home - Attestation Statements Document Initiated by Gregorioe: Yes Documenting Scribe: Danya Mace Provider For Whom Marv is Documenting (Include Credential): Dr. Jair Nixon MD Scribe Attestation: Danya Keith scribed for Dr. Jair Nixon MD on 04/15/19 at 0825. Scribe Documentation Reviewed: Yes Provider Attestation: The documentation as recorded by the Danya rincon accurately reflects the service I personally performed and the decisions made by me, Dr. Jair Nixon MD Status of Scribe Document: Viewed
[2019-04-14 09:49] VITALS: BP 122/83
== END 2019-04-14 09:48 | disposition home or self-care (01) ==
LOC: ED 03:00
DX: F19.10 Other psychoactive substance abuse, uncomplicated (principal); F91.9 Conduct disorder, unspecified; R04.0 Epistaxis; F17.210 Nicotine dependence, cigarettes, uncomplicated; Z87.820 Personal history of traumatic brain injury
CPT/HCPCS: 36415; 70450; 80053; 80307; 80320; 81003; 84443; 85025; 99285; G0480

== ENCOUNTER 2019-09-14 08:40 | Emergency (ER) | payer BC ==
[2019-09-14 08:59] VITALS: BP 121/78
--- NOTE | 2019-09-14 09:38 | UC ---
Abdominal Pain Male HPI - HPI Summary HPI Summary: Patient is a 24-year-old gentleman presents with 2 complaints. 1) patient reports pain in his left mid to low back. Patient states pain is worse with movement. 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 Patient states pain is worse with movement. Rest. No abdominal pain. No nausea or vomiting. No changes to his bowel or bladder. No blood in his urine. Patient has smoked marijuana to help his pain. He says is improved. Patient has not taken any other analgesia. Patient without any radha trauma to the area. Patient without any lesions or rash. 2) patient also reporting some diffuse car for an his right thumb. States he jammed about 3 weeks ago with full flexion he still has pain. Patient is right- hand dominant. No analgesic taken. 3) patient also requesting STD testing. Patient without any symptoms. States his partner is having symptoms. Would like to get checked. Patient persisted in both urine as well as blood testing. Patient's medications was entered in the EMR by triage was reviewed this visit. - History of Current Complaint Chief Complaint: UCBackPain Stated Complaint: BACK AND SIDE ABDOMINAL PAIN Time Seen by Provider: 09/14/19 09:28 Pain Intensity: 4 - Allergies/Home Medications Allergies/Adverse Reactions: Allergies Allergy/AdvReac Type Severity Reaction Status Date / Time Seasonal Allegies Allergy Congestion Uncoded 09/14/19 08:51 PMH/Surg Hx/FS Hx/Imm Hx Previously Healthy: Yes Other History Of: Negative For: Hepatitis B, Hepatitis C, Anticoagulant Therapy - Surgical History Surgical History: None - Family History Known Family History: Positive: Cardiac Disease - mother- [place], Hypertension - mother, Diabetes - mother, Other - mother CVA, Non-Contributory - Social History Occupation: Employed Full-time Lives: With Family Alcohol Use: Rare Alcohol Amount: 1 bottle of liquour (750mL) yesterday Substance Use Type: Marijuana Substance Use Comment - Amount & Last Used: daily Smoking Status (MU): Light Every Day Tobacco Smoker Type: Cigarettes Amount Used/How Often: 3-4 cigs per day - Immunization History Most Recent Influenza Vaccination: none Most Recent Tetanus Shot: up to date Review of Systems All Other Systems Reviewed And Are Negative: Yes Constitutional: Positive: Negative Skin: Positive: Negative Eyes: Positive: Negative ENT: Positive: Negative Respiratory: Positive: Negative Cardiovascular: Positive: Negative Gastrointestinal: Positive: Negative Genitourinary: Negative: Dysuria, Hematuria, Vaginal/Penile Burning, Vaginal/ Penile Itching, Vaginal/Penile Discharge, Vaginal/Penile Pain Motor: Positive: Negative Neurovascular: Positive: Negative Musculoskeletal: Positive: Other: - Left back pain Neurological: Positive: Negative Psychological: Positive: Negative Physical Exam - Summary Physical Exam Summary: Vital Signs Reviewed: Yes A+Ox3, no distress Eyes: Conjunctiva Clear, BARB. EOM intact and full ENT: Hearing grossly normal TM x 2 clear, mmoist, uvula midline, no exudate, no erythema Neck: Positive: Supple Respiratory: Positive: No respiratory distress, No accessory muscle use + CTA throughout no w/r Cardiovascular: RRR nl s1, s2 no m/r CBT <2 sec abd soft + BS nt/nd no guarding, no distension Musculoskeletal Exam: DOUGLASS x 4 without difficulty Strength Intact, ROM Intact no spinous process pain c/t/l/S Full AROM c spine With direct palp, pt with pain lateral margin paraspinal muscles distal thoracic area Pain increases with rotation at the waist, flexion at the waist, and extension upper ext against resistance no lesion, rash. Pt right thumb with mild discomfort base prox phalynx full flex/ext, abduction, adduction against resistance without weakness + flex/ext IP Neurological: Positive: Alert, + sensation throughout Psychological: Positive: Normal Response To examiner Skin: Positive: no rash, no ecchymosis Triage Information Reviewed: Yes Vital Signs: Initial Vital Signs Temp 98.8 F 09/14/19 08:52 Pulse 60 09/14/19 08:52 Resp 16 09/14/19 08:52 BP 121/78 09/14/19 08:52 Pulse Ox 100 09/14/19 08:52 Diagnostics - Radiology No standard instances Radiology Interpretation Completed By: Radiologist - Patient Name: KATIUSKA BASS Medical Record#: [id number] Ordering Physician: Shruthi Perla MD Acct.#: [id number] : 1995 Age: 24 Sex: M Location: [facility] Exam Date: 09/14/19 0948 ADM Status: REG ER Order Information: THUMB RIGHT Accession Number: [id number] CPT: 68199 HISTORY: right thumb pain mcp s/p fall . COMPARISONS: None relevant available at the time of dictation. VIEWS: 3, Frontal, lateral, and oblique views of the first digit of the right hand FINDINGS: BONE DENSITY : Normal. BONES: There is no displaced fracture. JOINTS: There is no arthropathy. ALIGNMENT: There is no dislocation. SOFT TISSUES: Unremarkable. OTHER FINDINGS: None. IMPRESSION: NO ACUTE OSSEOUS INJURY. IF SYMPTOMS PERSIST , RECOMMEND REPEAT IMAGING. <Electronically signed by Danny Alicea MD in [place]> 09/14/19 1015 Dictated By: Danny Alicea MD Dictated Date/Time: 09/14/19 1015 Transcribed Date/Time: 09/14/19 1015 Copy to: CC:Shruthi Perla MD; No Primary Care Phys,NOPCP Imaging - [facility] - [facility] [address] [address] ph ([phone] ph ([phone]) ph ([phone]) This report is only to be considered final once signed by the Provider(s) as displayed in the "< Electronically Signed by >" field (s). Absence of a signature indicates the report is in a draft status and still needs to be finalized. In the event this document was created by someone other than the signing Provider, the individual initiating the document will be listed in the "Entered by:" or "Dictated by:" levine. 1 of 1 Re-Evaluation - Re-Evaluation First Eval Comment: reviewed imaging. states feels better with buddy. motrin/apap. heat. stretch. f/u with pcp. work note. return precautions Abd Pain Male Course/Dx - Course Course Of Treatment: Patient presents to urgent care with 3 complaints. One, patient requesting STI testing. Patient without any symptoms discharged. Patient's but without any symptoms. Patient states he is wants to be checked. Reviewed with patient a JVD, hepatitis, syphilis, gonorrhea, chlamydia, Trichomonas. Patient requesting testing for all to, patient pouring back pain. On exam pain is reproducible left paraspinal distal thoracic pain. Patient states he does a lot of lateral rotation at his job and thinks this is the cause. Patient will take any abuse. Recommended Motrin and Tylenol. Patient was given an Buddy wrap for comfort and support. Patient comfortable with this and states it helped his pain. Finally, patient requesting evaluation for his right thumb. Patient states he jammed to 3 weeks ago. Patient was some mild discomfort the dorsum of the proximal phalanx. Patient with good CSM and good range of motion. Will check imaging studies. Recommend rest to reduce further trauma. Patient comfortable with the plan. - Differential Dx/Clinical Impression Provider Diagnosis: Muscle strain, Strain of right thumb, Concern about STD in male without diagnosis Discharge ED - Sign-Out/Discharge Documenting (check all that apply): Patient Departure All imaging exams completed and their final reports reviewed: Yes - Discharge Plan Condition: Stable Disposition: HOME Patient Education Materials: Sexually Transmitted Diseases (ED), Finger Sprain (ED), Back Pain (ED), Lower Back Exercises (ED) Forms: *Work Release Referrals: [facility] [Outside] No Primary Care Phys,NOPCP [Primary Care Provider] - Additional Instructions: - Okay to alternate ibuprofen (Advil, Motrin) 600mg and Tylenol every 3hours as needed for pain. Take with food. Do NOT take for more than 4-5 days. - wear buddy wrap for comfort and support -Apply moist heat to your back for 20 minutes at a time, 4-5 times a day. Once your muscles are warm, slow gentle stretching exercises are important - As requested, you were tested for sexually transmitted diseases today which include Gonorrhea, Chlamydia, Trichomonas, Syphillis, Hepatitis C, and HIV. These results take several days to come back. You will receive a call from a care team automobile assembler if you need treatment. You may also be contact by the health department for positive tests. -Contact the physician referral center to establish with a primary care provider - Billing Disposition and Condition Condition: STABLE Disposition: Home
[2019-09-15 12:17] LABS: Chlamydia trachomatis NAA Negative (Negative); Neisseria gonorrhoeae (GC) NAA Negative (Negative)
[2019-09-15 17:19] LABS: Hepatitis C Antibody Negative (Negative)
[2019-09-15 17:43] LABS: HIV 4th Generation Nonreactive (Nonreactive)
[2019-09-19 20:51] LABS: Trichomonas vag Misc RNA Male Negative (Negative); Trichomonas vaginalis SOURCE: URINE
== END 2019-09-14 10:35 | disposition home or self-care (01) ==
LOC: UCEAST 08:40
DX: S39.012A Strain of muscle, fascia and tendon of lower back, initial encounter (principal); X50.3XXA Overexertion from repetitive movements, initial encounter; Y93.89 Activity, other specified; Y92.89 Other specified places as the place of occurrence of the external cause; Y99.0 Civilian activity done for income or pay; S56.311A Strain of extensor or abductor muscles, fascia and tendons of right thumb at forearm level, initial encounter; W23.0XXA Caught, crushed, jammed, or pinched between moving objects, initial encounter; Y92.9 Unspecified place or not applicable; Z20.2 Contact with and (suspected) exposure to infections with a predominantly sexual mode of transmission; F17.210 Nicotine dependence, cigarettes, uncomplicated
CPT/HCPCS: 36415; 81003; 86780; 86803; 87389; 87491; 87591; 87661; 99211; G0463

== ENCOUNTER 2019-11-18 22:22 | Emergency (ER) | payer BC ==
[2019-11-18 23:21] LABS: Urine Appearance Clear; Urine Bilirubin Negative (Negative); Urine Blood Negative (Negative); Urine Color Amber; Urine Glucose Negative (Negative); Urine Ketones Trace (Negative); Urine Nitrite Negative (Negative); Urine Protein Negative (Negative); Urine Specific Gravity 1.032 (1.010-1.030); Urine Urobilinogen Positive (Negative)
[2019-11-18 23:22] LABS: Hematocrit 45 % (42-52); Hemoglobin 14.8 g/dL (14.0-18.0); Mean Corpuscular HGB Conc 33 g/dL (31-36); Mean Corpuscular Hemoglobin 31 pg (27-31); Mean Corpuscular Volume 94 fL (80-94); Mean Platelet Volume 9.4 fL (7.4-10.4); Platelet Count 157 10^3/uL (150-450); Red Cell Distribution Width 13 % (10-15); White Blood Count 6.9 10^3/uL (3.5-10.8)
[2019-11-18 23:50] LABS: Albumin 4.8 g/dL (3.2-5.2); Albumin/Globulin Ratio 1.6 (1-3); BUN/Creatinine Ratio 12.1 (8-20); Calcium 9.6 mg/dL (8.6-10.3); EGFR African American 124.9 (>60); EGFR Non-African American 103.2 (>60); Potassium 3.8 mmol/L (3.5-5.0); Total Bilirubin 1.4 mg/dL (0.2-1.0); Total Protein 7.8 g/dL (6.4-8.9)
[2019-11-19 00:01] LABS: Influenza A Molecular Negative (Negative); Influenza B Molecular Negative (Negative)
[2019-11-19] MEDS ORDERED: NS 0.9% 1000 ML** 1,000 ML IV ONE (00:01)
[2019-11-19] MEDS ORDERED: Ondansetron INJ* 2 MG/ML VIAL IV ONE (00:01)
--- NOTE | 2019-11-19 00:06 | ED ---
HPI Febrile Illness - HPI Summary HPI Summary: The patient is a 24-year-old male presenting to [facility] with a chief complaint of fever, nausea, and vomiting onset two days ago. He reports that he has been feeling feverish for the last few days but didnt measure his temperature until today, when he used a faulty thermometer that read 108F. He endorses a decreased oral intake as he has been unable to tolerate anything PO, and he also notes constipation. He denies any cough or diarrhea. Symptoms rated 0/10 in severity. He has not taken any medications [facility] for treatment. Afebrile in triage. No PMHX. Current smoker, occasional EtOH, marijuana use. Medications reviewed. Allergies noted. - History of Current Complaint Chief Complaint: EDFever Time Seen by Provider: 11/18/19 23:02 Hx Obtained From: Patient Onset/Duration: Started Days Ago, Still Present Timing: Lasting Days Initial Severity: Mild Current Severity: Mild Pain Intensity: 0 Pain Scale Used: 0-10 Numeric Aggravating Factors: Nothing Alleviating Factors: Nothing Associated Signs and Symptoms: Nausea, Vomiting, Other: - decreased oral intake , constipation; Negative: cough, diarrhea - Allergy/Home Medications Allergies/Adverse Reactions: Allergies Allergy/AdvReac Type Severity Reaction Status Date / Time Seasonal Allegies Allergy Congestion Uncoded 11/18/19 22:27 PMH/Surg Hx/FS Hx/Imm Hx Endocrine/Hematology History: Denies: Hx Anticoagulant Therapy, Hx Diabetes, Hx Thyroid Disease Cardiovascular History: Denies: Hx Hypertension Respiratory History: Denies: Hx Asthma, Hx Chronic Obstructive Pulmonary Disease (COPD) GI History: Denies: Hx Ulcer Psychiatric History: Denies: Hx Eating Disorder, Hx of Violent Episodes Against Others - Surgical History Surgical History: None Surgery Procedure, Year, and Place: none - Immunization History Date of Tetanus Vaccine: 03/20 Date of Influenza Vaccine: 2018 Immunizations Up to Date: Yes Infectious Disease History: No Infectious Disease History: Denies: Hx Clostridium Difficile, Hx Hepatitis, Hx Human Immunodeficiency Virus (HIV), Hx of Known/Suspected MRSA, Hx Shingles, Hx Tuberculosis, Hx Known/ Suspected VRE, Hx Known/Suspected VRSA, History Other Infectious Disease, Traveled Outside the [place] in Last 30 Days - Family History Known Family History: Positive: Cardiac Disease - mother- NM, Hypertension - mother, Diabetes - mother, Other - mother CVA - Social History Alcohol Use: Occasionally Alcohol Amount: 1 bottle of liquour (750mL) yesterday Hx Substance Use: Yes Substance Use Type: Reports: Marijuana Substance Use Comment - Amount & Last Used: daily Hx Tobacco Use: Yes Smoking Status (MU): Light Every Day Tobacco Smoker Type: Cigarettes Amount Used/How Often: 3-4 cigs per day - Additional Comments History Additional Comments: no past medical history Review of Systems - ROS Summary Review of Systems Summary: Home Medications Medication Instructions Recorded Confirmed Type Ibuprofen TAB* [Motrin TAB* 600 MG] 600 mg PO Q6H PRN #20 tab 05/12/18 11/18/19 Rx Positive: Fever Negative: Cough Positive: Vomiting, Nausea, Other - decreased oral intake, constipation. Negative: Diarrhea All Other Systems Reviewed And Are Negative: Yes Physical Exam - Summary Physical Exam Summary: General: Well-developed, Thin male. Mildly ill-appearing. No acute distress. HEENT: Normocephalic, Atraumatic. Eyes: Conjuctiva normal, PERRL. Oropharynx: Clear, mucous membranes moist, (-) exudates. Neck: Soft, FROM, (-) lymphadenopathy, (-) thyromegaly, (-) JVD. Cardiovascular: Normal sinus rhythm, (-) murmur. Lungs: Clear to auscultation bilaterally (-) wheezes, (-) rales, (-) rhonchi. Abdomen: Soft, non-tender, non-distended, (-) organomegaly, normal bowel sounds. Back: (-) CVA tenderness Extremities: No edema. Skin: Hot to touch, dry, (-) rash. Neuro: Alert and oriented x3, moves all extremities equally. No ataxia. No gait disturbance. No sensory deficit. Normal strength, normal sensation. Psychiatric: Mood normal, affect normal. Triage Information Reviewed: Yes Vital Signs On Initial Exam: Initial Vitals Temp Pulse Resp BP Pulse Ox 98.5 F 88 16 126/87 99 11/18/19 22:24 11/18/19 22:24 11/18/19 22:24 11/18/19 22:24 11/18/19 22:24 Vital Signs Reviewed: Yes Procedures - Sedation Patient Received Moderate/Deep Sedation with Procedure: No Diagnostics - Vital Signs Vital Signs Temp Pulse Resp BP Pulse Ox 11/18/19 23:35 66 129/69 99 11/18/19 23:05 64 100 11/18/19 23:04 56 125/75 99 11/18/19 22:24 98.5 F 88 16 126/87 99 - Laboratory Lab Results: Lab Results 11/18/19 11/18/19 11/18/19 Range/Units 23:10 23:18 23:18 WBC 6.9 (3.5-10.8) 10^3/uL RBC 4.80 (4.18-5.48) 10^6 /uL Hgb 14.8 (14.0-18.0) g/dL Hct 45 (42-52) % MCV 94 (80-94) fL MCH 31 (27-31) pg MCHC 33 (31-36) g/dL RDW 13 (10-15) % Plt Count 157 (150-450) 10^3/uL MPV 9.4 (7.4-10.4) fL Neut % (Auto) Pending Lymph % (Auto) Pending Perry % (Auto) Pending Eos % (Auto) Pending Baso % (Auto) Pending Absolute Neuts (auto) Pending Absolute Lymphs (auto) Pending Absolute Monos (auto) Pending Absolute Eos (auto) Pending Absolute Basos (auto) Pending Absolute Nucleated RBC Pending Nucleated RBC % Pending Sodium (135-145) mmol/L Potassium (3.5-5.0) mmol/L Chloride (101-111) mmol/L Carbon Dioxide (22-32) mmol/L Anion Gap (2-11) mmol/L BUN (6-24) mg/dL Creatinine (0.67-1.17) mg/dL Est GFR ( Amer) (>60) Est GFR (Non-Af Amer) (>60) BUN/Creatinine Ratio (8-20) Glucose (70-100) mg/dL Lactic Acid 0.8 (0.5-2.0) mmol/L Calcium (8.6-10.3) mg/dL Total Bilirubin (0.2-1.0) mg/dL AST (13-39) U/L ALT (7-52) U/L Alkaline Phosphatase (34-104) U/L Total Protein (6.4-8.9) g/dL Albumin (3.2-5.2) g/dL Globulin (2-4) g/dL Albumin/Globulin Ratio (1-3) Urine Color Alisia Urine Appearance Clear Urine pH 5.0 (5-9) Ur Specific [place] 1.032 H (1.010-1.030) Urine Protein Negative (Negative) Urine Ketones Trace A (Negative) Urine Blood Negative (Negative) Urine Nitrate Negative (Negative) Urine Bilirubin Negative (Negative) Urine Urobilinogen Positive A (Negative) Ur Leukocyte Esterase Negative (Negative) Urine Glucose Negative (Negative) Influenza A (Rapid) Influenza B (Rapid) 11/18/19 11/18/19 Range/Units 23:18 23:25 WBC (3.5-10.8) 10^3/uL RBC (4.18-5.48) 10^6 /uL Hgb (14.0-18.0) g/dL Hct (42-52) % MCV (80-94) fL MCH (27-31) pg MCHC (31-36) g/dL RDW (10-15) % Plt Count (150-450) 10^3/uL MPV (7.4-10.4) fL Neut % (Auto) Lymph % (Auto) Perry % (Auto) Eos % (Auto) Baso % (Auto) Absolute Neuts (auto) Absolute Lymphs (auto) Absolute Monos (auto) Absolute Eos (auto) Absolute Basos (auto) Absolute Nucleated RBC Nucleated RBC % Sodium 135 (135-145) mmol/L Potassium 3.8 (3.5-5.0) mmol/L Chloride 98 L (101-111) mmol/L Carbon Dioxide 28 (22-32) mmol/L Anion Gap 9 (2-11) mmol/L BUN 11 (6-24) mg/dL Creatinine 0.91 (0.67-1.17) mg/dL Est GFR ( Amer) 124.9 (>60) Est GFR (Non-Af Amer) 103.2 (>60) BUN/Creatinine Ratio 12.1 (8-20) Glucose 99 (70-100) mg/dL Lactic Acid (0.5-2.0) mmol/L Calcium 9.6 (8.6-10.3) mg/dL Total Bilirubin 1.40 H (0.2-1.0) mg/dL AST 15 (13-39) U/L ALT 10 (7-52) U/L Alkaline Phosphatase 62 (34-104) U/L Total Protein 7.8 (6.4-8.9) g/dL Albumin 4.8 (3.2-5.2) g/dL Globulin 3.0 (2-4) g/dL Albumin/Globulin Ratio 1.6 (1-3) Urine Color Urine Appearance Urine pH (5-9) Ur Specific [place] (1.010-1.030) Urine Protein (Negative) Urine Ketones (Negative) Urine Blood (Negative) Urine Nitrate (Negative) Urine Bilirubin (Negative) Urine Urobilinogen (Negative) Ur Leukocyte Esterase (Negative) Urine Glucose (Negative) Influenza A (Rapid) Pending Influenza B (Rapid) Pending Result Diagrams: 11/18/19 23:18 11/18/19 23:18 Lab Statement: Any lab studies that have been ordered have been reviewed, and results considered in the medical decision making process. Re-Evaluation - Re-Evaluation First Eval Re-Evaluation Time: 02:05 Change: Improved Comment: I have discussed results with the patient and symptoms have improved with treatment. Discussed symptoms that warrant immediate return to ED. Course/Dx - Course Course Of Treatment: 24-year-old male presents with acute illness. He states over the last 2 days he has had vomiting and feels feverish. General malaise. No significant cough. No diarrhea. Unable to take in anything by mouth except water. Everything else comes back up. Patient is mildly ill-appearing on exam. Workup shows no significant abnormalities. Patient's symptoms have improved greatly with IV fluids, Toradol, Zofran, Protonix. Flu swab negative. Patient discharged home with siblings of Sari. Advised clear fluids. Follow-up with PCP. Follow-up sooner for any worsening symptoms. - Diagnoses Provider Diagnoses: Tobacco use, Viral syndrome, Vomiting Discharge ED - Sign-Out/Discharge Documenting (check all that apply): Patient Departure - Patient will be discharged home. - Discharge Plan Condition: Stable Disposition: HOME Patient Education Materials: Acute Nausea and Vomiting (ED), Viral Syndrome (ED ) Referrals: [facility] [Outside] - 3 Days Additional Instructions: Please follow up with your primary care provider in 2-3 days. Return to the emergency department for any new or worsening symptoms. - Billing Disposition and Condition Condition: STABLE Disposition: Home - Attestation Statements Document Initiated by Ednaibe: Yes Documenting Scribe: Cathryn Britton Provider For Whom Marv is Documenting (Include Credential): Dr. Juliana Carson MD Scribe Attestation: I, Cathryn Britton, scribed for Dr. Juliana Carson MD on 11/19/19 at 0245. Scribe Documentation Reviewed: Yes Provider Attestation: The documentation as recorded by the Cathryn rincon accurately reflects the service I personally performed and the decisions made by me, Dr. Juliana Carson MD Status of Scribe Document: Viewed
[2019-11-19 00:16] LABS: ABS Lymphocytes 0.4 10^3/ul (1.0-4.8); ABS Monocytes 0.4 10^3/ul (0-0.8); ABS Neutrophils 6.1 10^3/ul (1.5-7.7); Eosinophil % 0.6 %; Large Platelets Present; Lymphocyte % 5.6 %
[2019-11-19] MEDS ORDERED: Pantoprazole IV* 40 MG IV ONE (00:20)
[2019-11-19] MEDS ORDERED: Ketorolac INJ* 30 MG/ML 1 ML VIAL IV PUSH ONE (00:42)
[2019-11-19] MEDS ORDERED: O ndansetron ODT 4MG 5TAB PRPK 4 MG PAK PO ONE (02:05)
[2019-11-19] MEDS ORDERED: Ibuprofen TAB* 600 MG PO PRN (02:05)
[2019-11-19 02:16] VITALS: BP 125/68
== END 2019-11-19 02:15 | disposition home or self-care (01) ==
LOC: ED 22:22
DX: B34.9 Viral infection, unspecified (principal); R11.2 Nausea with vomiting, unspecified; F17.210 Nicotine dependence, cigarettes, uncomplicated
CPT/HCPCS: 36415; 80053; 81003; 83605; 85025; 96361; 96374; 96375; 99284; A9270-GY; J1885; J2405